=== PATIENT | female | born 1995 | race Two or more races ===

== ENCOUNTER 2024-09-28 21:57 | Emergency (ER) | payer MEDICAID, SELFPAY ==
--- NOTE | ~2024-09-28 | US_ITS ---
CLINICAL HISTORY: 1st trimester 4 weeks vaginal bleeding. Exam: 1st trimester obstetrical ultrasound, transabdominal and transvaginal evaluation. Comparison: None. Findings: Patient's last menstrual period was August 24, 2024. This gives a gestational age of 5 weeks and 1 day. Transabdominal and transvaginal obstetrical ultrasound studies performed. Urinary bladder is moderately distended on the transabdominal images. Uterus measures 10.1 x 4.0 x 5.2 cm in size. Myometrium is unremarkable. Single intrauterine gestation is identified. Gestational sac and yolk sac are identified. Potential very early pole. Mean sac diameter gives an estimated age by ultrasound of the 5 weeks and 3 days +/-1 week. No cardiac activity is identified. No subchorionic hemorrhage. Right ovary measures 3.7 x 1.6 x 2.2 cm in size. Right ovary is unremarkable. Left ovary measures 3.5 x 2.2 x 3.0 cm in size. Presumed corpus luteal cyst within the left ovary measuring 2.1 x 1.7 x 2.0 cm in size. Small volume free pelvic fluid. Impression: 1. Single intrauterine gestation with age by ultrasound of 5 weeks and 3 days +/-1 week. Given the lack of visualization of a definitive pole and the lack of cardiac activity, serial beta hCG and follow-up ultrasound study is suggested to confirm viability. 2. Presumed corpus luteal cyst within the left ovary. This document has been electronically signed by: Chele Mills MD on 09/29/2024 02:01:44
[2024-09-28 22:00] VITALS: BP 116/71; PULSE 100; RESP 17; TEMP 36.9; O2SAT 98; BMI 28.5
[2024-09-28 22:26] LABS: MANUAL DIFF FLAG NO
[2024-09-28 22:28] LABS: Basophils Absolute Auto 0.1 X10*3/uL (0.0-0.2); Basophils Percent Auto 0.3 % (0-2); Eosinophils Absolute Auto 0.1 X10*3/uL (0.0-0.4); Eosinophils Percent Auto 0.5 % (0-4); Hematocrit 37.9 % (37.0-47.0); Hemoglobin 12.6 g/dl (12.0-16.0); Imm Gran Abs Auto 0.08 X10*3/uL (0.00-0.03); Imm Gran Pct Auto 0.5 % (0.0-0.4); Lymphocytes Absolute Auto 2.7 X10*3/uL (1.2-4.9); Lymphocytes Percent Auto 16.7 % (20-40); Mean Corpuscular HGB Conc 33.2 g/dl (31.0-35.0); Mean Corpuscular Hemoglobin 27.8 pg (27.0-33.0); Mean Corpuscular Volume 83.7 fL (80.0-98.0); Mean Platelet Volume 10.4 fL (9.4-12.3); Monocytes Percent Auto 6.3 % (2-11); Neutrophils Absolute Auto 12.4 x10*3/uL (2.0-8.3); Neutrophils Percent Auto 75.7 % (45-73); Platelet Count 356 X10*3/uL (160-400); Red Blood Count 4.53 X10*6/uL (4.20-5.50); Red Cell Distribution Width 13.2 % (11.0-16.0); White Blood Count 16.4 X10*3/uL (4.8-10.8)
[2024-09-28 22:48] LABS: Alanine Aminotransferase 18 U/L (0-31); Albumin Level 4.3 g/dL (3.5-5.0); Alkaline Phosphatase 97 U/L (39-117); Anion Gap 13 (12-20); Aspartate Amino Transferase 38 U/L (5-31); Bilirubin Total 0.5 mg/dL (0.0-1.0); Blood Urea Nitrogen 9 mg/dL (9-16); Calcium 9.4 mg/dL (8.4-10.2); Carbon Dioxide 22 mmol/L (22-29); Chloride 108 mmol/L (96-108); Creatinine Clr Calc Pharmacy 79.8; Estimated Glomerular Filt Rate 58; Glucose Random 90 mg/dL (60-115); HCG Quantitative 5948 mIU/mL; Lipase 18 U/L (8-78); Potassium 3.7 mmol/L (3.3-5.1); Sodium 139 mmol/L (135-145); Total Protein 8.4 g/dL (6.5-8.0)
--- NOTE | 2024-09-28 23:08 | ED_ITS ---
HPI - Female Genitourinary General Chief complaint: Vaginal Bleeding Stated complaint: Miscarriage? Time Seen by Provider: 09/28/24 22:57 Source: patient Mode of arrival: ambulatory Limitations: no limitations History of Present Illness ED Provider: DR. Lezama HPI Narrative: 29-year-old female LMP was 08/24/2024 was late for her menstruation and ran at test that was positive, patient was playing basketball game today feels total body ache, has noticed vaginal bleeding since early today, been complaining lower abdominal/ pelvic contraction on and off today, no lightheadedness, no syncopal episode. No history of STDs or ectopic in the past. No dysuria, no frequency urination, no hematuria , no fever. No coughing. Related Data Allergies Allergy/AdvReac Type Severity Reaction Status Date / Time No Known Allergies Allergy Verified 09/28/24 22:05 Review of Systems 2 Review of Systems: All other systems are reviewed and are negative Constitutional: Reports as per HPI and Reports no additional constitutional complaints Eyes: Reports as per HPI and Reports no additional eye complaints Reports system reviewed and no additional complaints, except as documented Cardiovascular: Reports as per HPI and Reports no additional cardiovascular complaints Respiratory: Reports as per HPI and Reports no additional respiratory complaints Gastrointestinal: Reports as per HPI and Reports no additional gastrointestinal complaints Genitourinary: Reports no additional female genitourinary complaints Musculoskeletal: Reports no additional musculoskeletal complaints Skin/Breast: Reports system reviewed and no additional complaints, except as docu Psychiatric: Reports no additional psychiatric complaints Endocrine: Reports no additional endocrine complaints Hematologic/Lymphatic: Reports no additional hematologic/lymphatic complaints Allergic/Immunologic: Reports no additional allergic/immunologic complaints Reports system reviewed and no additional complaints, except as documented and Reports Abnormal speech present [facility] Social History Social History Advance Directives: No Advance Directives Information Provided: No Do you have a plan to hurt others: No Plan Physical Exam 2 Vital Signs: Vital Signs: Last Vital Signs Temp 98.4 F 09/29/24 02:00 Pulse 87 09/29/24 02:00 Resp 18 09/29/24 02:00 BP 107/62 09/29/24 02:00 Pulse Ox 100 09/29/24 02:00 O2 Del Method Room Air 09/29/24 02:00 BMI result Body Mass Index 28.5 Vital signs have been reviewed and appear to be correct. Blood pressure elevated. Heart rate normal. Respiratory rate normal. Temperature normal. Oxygen saturation normal. Appearance: Alert. Oriented X3. No acute distress. Head: Normal external exam. Normocephalic. Atraumatic. No Martinez signs noted. No raccoon eyes noted Eyes: PERRLA. EOMI. Conjunctiva and sclera normal. Eyelids normal. ENT: TM's Normal. Pharynx normal. Uvula midline. Moist mucous membranes. No trismus noted. No drooling noted. No muffled voice noted. Neck: Normal inspection. Neck supple. FROM. No adenopathy. Thyroid Normal. No meningeal signs. No neck mass noted. CVS: Normal heart rate and rhythm. Heart sound normal. No murmurs noted. Pulses normal throughout. Respiratory: No respiratory distress. Painless inspiration. Breath sounds normal. No wheezes/rales/rhonchi noted. Chest nontender. No accessory muscle usage noted or decreased air movement noted. Abdomen: Soft and nontender. Bowel sounds normal in all 4 quadrants. No distention noted. No organomegaly noted. No visible injury noted. Pelvic exam: Deferred for pelvic ultrasound. Back: No CVA tenderness. Full range of motion noted. Skin: Skin warm and dry. Normal skin color. Normal skin turgor. No rashes/lesions/lacerations noted. Extremities: No lower extremity edema. Extremities exhibit normal range of motion. Extremities nontender. Neuro: Oriented X 3. Cranial nerve exam: II-XII are grossly intact No motor deficit. No sensory deficit. Reflexes normal. Course Reevaluation(s) Reevaluation #1: 29-year-old female 5 weeks +2 days came in with vaginal bleeding and slight discomfort in the lower abdomen, ultrasound revealed intrauterine empty sac which is appropriate for her stage of . ABO Rh type is O positive. Leukocytosis could be reactionary to itself but no source of infection. Time: 02:43 Medications Administered Discontinued Medications Generic Name Dose Route Start Last Admin Trade Name Freq PRN Reason Stop Dose Admin Acetaminophen 650 mg 09/28/24 23:21 09/28/24 23:32 Acetaminophen 325 Mg Tablet PO 09/28/24 23:22 650 mg ONCE ONE Administration Medical Decision Making Differential Diagnosis Differential Diagnoses: The differential diagnosis associated with the presentation includes ( Ectopic , threatened , early normal , severe anemia, electrolyte derangement, UTI, pyelonephritis, ABO Rh incompatibility.) Admission/Observation Consideration of admission/observation: Escalation of care including admission/observation considered Lab Data MDM Lab Attestation statement: I reviewed the patient's lab results. 09/28/24 22:19 09/28/24 22:19 Labs: Lab Results 09/28/24 09/28/24 09/29/24 Range/Units 22:19 23:16 02:02 WBC 16.4 H (4.8-10.8) X10*3/uL RBC 4.53 (4.20-5.50) X10*6/uL Hgb 12.6 (12.0-16.0) g/dl Hct 37.9 (37.0-47.0) % MCV 83.7 (80.0-98.0) fL MCH 27.8 (27.0-33.0) pg MCHC 33.2 (31.0-35.0) g/dl RDW 13.2 (11.0-16.0) % Plt Count 356 (160-400) X10*3/uL MPV 10.4 (9.4-12.3) fL Immature Gran % (Auto) 0.5 H (0.0-0.4) % Neut % (Auto) 75.7 H (45-73) % Lymph % (Auto) 16.7 L (20-40) % [place] % (Auto) 6.3 (2-11) % Eos % (Auto) 0.5 (0-4) % Baso % (Auto) 0.3 (0-2) % Lymph # (Auto) 2.7 (1.2-4.9) X10*3/uL [place] # (Auto) 1.0 (0.1-1.2) X10*3/uL Eos # (Auto) 0.1 (0.0-0.4) X10*3/uL Baso # (Auto) 0.1 (0.0-0.2) X10*3/uL Abs Immat Gran (auto) 0.08 H (0.00-0.03) X10*3/uL Absolute Neuts (auto) 12.4 H (2.0-8.3) x10*3/uL Absolute Nucleated RBC 0.000 (0.0-0.012) X10*3/uL Nucleated RBC % (auto) 0.0 (0.0-0.2) /100WBC Sodium 139 (135-145) mmol/L Potassium 3.7 (3.3-5.1) mmol/L Chloride 108 (96-108) mmol/L Carbon Dioxide 22 (22-29) mmol/L Anion Gap 13 (12-20) BUN 9 (9-16) mg/dL Creatinine 1.11 (0.5-1.4) mg/dL Estim Creat Clear Calc 79.8 Estimated GFR 58 Random Glucose 90 (60-115) mg/dL Calcium 9.4 (8.4-10.2) mg/dL Total Bilirubin 0.5 (0.0-1.0) mg/dL AST 38 H (5-31) U/L ALT 18 (0-31) U/L Alkaline Phosphatase 97 (39-117) U/L Total Protein 8.4 H (6.5-8.0) g/dL Albumin 4.3 (3.5-5.0) g/dL Lipase 18 (8-78) U/L Beta HCG, Quant 5948 mIU/mL Urine Color Yellow Urine Appearance Clear Urine pH 6.5 (5.0-9.0) Ur Specific [place] 1.020 (1.005-1.025) Urine Protein Negative (Neg-Trace) mg/dL Urine Glucose (UA) Negative (Negative) mg/dL Urine Ketones Trace (Negative) mg/dL Urine Blood Negative (Negative) Urine Nitrite Negative (Negative) Ur Leukocyte Esterase Negative (Negative) Urine RBC 0-2 (0-2) /HPF Urine WBC 0-5 (0-5) /HPF Ur Squamous Epith Cells 0-2 (0-2) /HPF Urine Bacteria None Seen (None Seen) Hyaline Casts 0-2 (0-2) /LPF Blood Type O Positive Independent Interpretation I performed an independent interpretation of an: Ultrasound ( Pelvic ultrasound:1. Single intrauterine gestation with age by ultrasound of 5 weeks and 3 days +/-1 week. Given the lack of visualization of a definitive pole and the lack of cardiac activity, serial beta hCG and follow-up ultrasound study is suggested to confirm viability. 2) Radiology Impression Discussion of test interpretation with radiology: I have reviewed the radiologist's reading. Discharge Plan Discharge Clinical Impression: Threatened Patient Disposition: Home, Self-Care Instructions: Threatened Miscarriage (ED) Additional Instructions: bedrest, no heavy lifting, no strenuous exercising, no intercourse, seek medical attention if worsening of vaginal bleeding or abdominal pain. Otherwise it is important to follow-up with Dr. Saenz be in 48 hours please call his office as instructed. Referrals: Krishna Saenz MD [Physician] - Print Language: Slovenian
[2024-09-28 23:19] VITALS: BP 107/66; PULSE 88; RESP 18; TEMP 36.9; O2SAT 100
--- NOTE | 2024-09-28 23:30 | MHC.EDTECH ---
This tech took over care of pt at 2300,rounded and vitals completed, RH factor drawn and band applied to right wrist, patient asked T/W for something for pain, RN Usha was made aware,call kinney in reach
[2024-09-28] MEDS: Acetaminophen 325 MG TABLET 650 MG PO (23:32)
[2024-09-29 02:00] VITALS: BP 107/62; PULSE 87; RESP 18; TEMP 36.9; O2SAT 100
--- NOTE | 2024-09-29 02:03 | MHC.EDTECH ---
Addendum entered by Susu Hernandes 09/29/24 02:05: urine sample obtained and sent to lab, brother at bedside,call kinney in reach Original Note: Patient is eating [employer] appears comfortable,rounds and vitals completed,
[2024-09-29 02:11] LABS: Appearance Urine Clear; Color Urine Yellow; Glucose Urine UA Negative (Negative); Leukocyte Esterase Urine Negative (Negative); Nitrite Urine Negative (Negative); PH 6.5 (5.0-9.0); Urine Blood Negative (Negative); Urine Ketones Trace mg/dL (Negative); Urine Protein Negative (Neg-Trace)
[2024-09-29 02:13] LABS: Bacteria Urine None Seen (None Seen); Hyaline Casts Urine 0-2 /LPF (0-2); RBC Urine 0-2 /HPF (0-2); Squamous Epithelial Cell Urine 0-2 /HPF (0-2); WBC Urine 0-5 /HPF (0-5)
[2024-09-29 02:58] VITALS: BP 107/62; PULSE 87; RESP 18; TEMP 36.9; O2SAT 100
== END 2024-09-29 03:01 | disposition home or self-care (01) ==
PROVIDERS: Emergency Provider Emergency Medicine
DX: O20.0 Threatened abortion (principal)
CPT/HCPCS: 36415; 76801; 76817; 80053; 81001; 83690; 84702; 85025; 86900; 86901; 99283; 99284

== ENCOUNTER → 2024-09-29 | Outpatient (BNV) | payer MEDICAID, SELFPAY | PROVIDERS: Emergency Provider Emergency Medicine; Visit Provider Radiology Diagnostic Radiology | DX: O26.851 Spotting complicating pregnancy, first trimester (principal) | CPT/HCPCS: 76801; 76817 ==

== ENCOUNTER 2024-10-01 21:49 | Emergency (ER) | payer OTHER, SELFPAY ==
[2024-10-01 21:57] VITALS: BP 121/63; PULSE 98; RESP 18; TEMP 36.3; O2SAT 100; BMI 28.2
[2024-10-01 22:34] LABS: IDNOW Serial# 08D9AD1C; Strep A Nucleic Acid Positive (Negative)
[2024-10-01 23:00] LABS: Influenza A PCR NEGATIVE (Negative); Influenza B PCR NEGATIVE (Negative); Resp Syncy Virus RNA Qual PCR NEGATIVE (Negative); SARS COV2 PCR INHOUSE NEGATIVE (Negative)
--- NOTE | 2024-10-01 23:07 | ED_ITS ---
HPI - URI/Sore Throat General Chief Complaint: Upper Respiratory Symptoms Stated Complaint: sore throat Time Seen by Provider: 10/01/24 23:02 Source: patient Mode of arrival: ambulatory Limitations: no limitations History of Present Illness ED Provider: HPI Narrative: Patient complaining of sore throat since yesterday with painful to swallow and has a muffled voice low-grade fever no chills no shortness a breath no rhinohea Related Data Previous Rx's ?Medication ?Instructions ?Recorded cefuroxime axetil 500 mg tablet 500 mg PO BID 10 days #20 tabs 10/01/24 ibuprofen 600 mg tablet 600 mg PO Q6H PRN fever or pain 10/01/24 #30 tabs Allergies Allergy/AdvReac Type Severity Reaction Status Date / Time No Known Allergies Allergy Verified 10/01/24 21:58 Review of Systems Review of Systems: Yes all other systems are reviewed and are negative PMFSH Social History Social History Smoked in Last 30 Days: No Use of substances other than those prescribed or required for medical reasons: No Advance Directives: No Advance Directives Information Provided: No Do you have a plan to hurt others: No Plan Patient : No Physical Exam Vital Signs: Vital Signs: Last Vital Signs Temp 97.6 F 10/02/24 00:07 Pulse 84 10/02/24 00:07 Resp 18 10/02/24 00:07 BP 112/61 10/02/24 00:07 Pulse Ox 100 10/02/24 00:07 O2 Del Method Room Air 10/02/24 00:07 BMI result Body Mass Index 28.2 Appearance: Alert. Oriented X3. No acute distress. Eyes: no pallor or icterus ENT: Pharynx erythematous with exudates Oral Mucosa moist Neck: Normal inspection. Neck supple. CVS: Normal heart rate and rhythm. Pulses normal. Respiratory: No respiratory distress. Equal air entry bilateral, no wheezing/rales/rhonchi Abd: soft, not tender Skin: Skin warm and dry. Normal skin color. Normal skin turgor. Extremities: No lower extremity edema, no calf tenderness Neuro: Oriented X 3. Medications Administered Discontinued Medications Generic Name Dose Route Start Last Admin Trade Name Freq PRN Reason Stop Dose Admin Cefuroxime Axetil 500 mg 10/01/24 23:07 10/01/24 23:16 Cefuroxime Axetil 500 Mg Tablet PO 10/01/24 23:08 500 mg ONCE ONE Administration Medical Decision Making Medical Decision Making MDM Narrative: Patient with strep throat will prescribe cefuroxime Lab Data MDM Lab Attestation statement: I reviewed the patient's lab results. Labs: Lab Results 10/01/24 Range/Units 22:16 Influenza Type A (PCR) NEGATIVE (Negative) Influenza Type B (PCR) NEGATIVE (Negative) RSV RNA Qual (PCR) NEGATIVE (Negative) SARS-CoV-2 RNA (RT-PCR) NEGATIVE (Negative) S. pyogenes GrpA YOLETTE Positive A (Negative) Discharge Plan Discharge Clinical Impression: Strep throat Patient Disposition: Home, Self-Care Instructions: Strep Throat (ED) Additional Instructions: Drink plenty of fluids Take antibiotics as prescribed Tylenol/Motrin for pain Follow with your PCP if not better Prescriptions: New ibuprofen 600 mg tablet 600 mg PO Q6H PRN (Reason: fever or pain) Qty: 30 0RF cefuroxime axetil 500 mg tablet 500 mg PO BID 10 Days Qty: 20 0RF Stand Alone Forms: Work/School Release Interventions: ED Discharge Assessment Last Done: 10/02/24 00:07 Discharge Date/Time: 10/02/24 00:07 Print Language: Cook Islander
[2024-10-01] MEDS: cefuroxime axetiL 500 MG TABLET PO (23:16)
[2024-10-02] VITALS: BP 112/61; PULSE 84; RESP 18; TEMP 36.4; O2SAT 100
[2024-10-02 00:07] VITALS: BP 112/61; PULSE 84; RESP 18; TEMP 36.4; O2SAT 100
== END 2024-10-02 00:07 | disposition home or self-care (01) ==
PROVIDERS: Emergency Provider Internal Medicine
DX: J02.0 Streptococcal pharyngitis (principal); R13.10 Dysphagia, unspecified; R50.9 Fever, unspecified; Z03.818 Encounter for observation for suspected exposure to other biological agents ruled out
CPT/HCPCS: 0241U; 87651; 99283; 99284

== ENCOUNTER 2024-11-21 19:22 | Emergency (ER) | payer OTHER, SELFPAY ==
--- NOTE | ~2024-11-21 | XR_ITS ---
CLINICAL HISTORY: SOB, asthma 2 view chest x-ray Comparison: None Findings: Mildly diffuse interstitial opacities with bronchial wall thickening. No significant pleural effusion or pneumothorax. Normal size heart. No acute fracture. IMPRESSION: Possible small airways disease. This document has been electronically signed by: Noel Short MD on 11/21/2024 20:22:55
[2024-11-21 19:31] VITALS: BP 134/76; PULSE 85; RESP 18; TEMP 36.6; O2SAT 98; BMI 27.9
--- NOTE | 2024-11-21 19:31 | ED_ITS ---
HPI - Asthma General Chief Complaint: Upper Respiratory Symptoms Stated Complaint: asthma Time Seen by Provider: 11/21/24 21:46 Source: patient Limitations: no limitations History of Present Illness ED Provider: Tatum Juarez PA-C HPI Narrative: 29-year-old female with a history of asthma presents with asthma exacerbation x3 days. Associated dry repetitive cough, nasal congestion sneezing, wheezing and shortness of breath. Patient states her home medications have not helped alleviate her symptoms. Denies fever. Denies seasonal allergies. Related Data Previous Rx's ?Medication ?Instructions ?Recorded cefuroxime axetil 500 mg tablet 500 mg PO BID 10 days #20 tabs 10/01/24 ibuprofen 600 mg tablet 600 mg PO Q6H PRN fever or pain 10/01/24 #30 tabs albuterol sulfate 2.5 mg/3 mL 2.5 mg (3 mL) inhalation Q4-6H PRN 11/21/24 (0.083 %) solution for nebulization shortness of breath or wheezing #75 mL prednisone 20 mg tablet 40 mg (2 x 20 mg) PO DAILY #8 tabs 11/21/24 Allergies Allergy/AdvReac Type Severity Reaction Status Date / Time No Known Allergies Allergy Verified 11/21/24 19:34 Review of Systems Review of Systems: Yes all other systems are reviewed and are negative Constitutional: Constitutional: Denies fatigue and Denies fever(s) ENT: Reports nasal congestion Cardiovascular: Cardiovascular: Denies chest pain and Reports dyspnea Respiratory: Respiratory: Denies chest congestion, Reports cough, Reports dyspnea and Reports wheezing Endocrine: Endocrine: Denies fatigue Allergic/Immunologic: Allergic/Immunologic: Reports wheezing PMFSH Past Medical History Attestation statement: The following information was validated with the patient. Social History Social History Smoked in Last 30 Days: No Use of substances other than those prescribed or required for medical reasons: No Advance Directives: No Advance Directives Information Provided: No Do you have a plan to hurt others: No Plan Patient : No Physical Exam Vital Signs: Vital Signs: Last Vital Signs Temp 97.8 F 11/21/24 19:31 Pulse 81 11/21/24 22:08 Resp 18 11/21/24 22:08 BP 134/76 11/21/24 19:31 Pulse Ox 95 11/21/24 21:58 O2 Del Method Room Air 11/21/24 21:58 BMI result Body Mass Index 27.9 Const: Other: Alert well-appearing Orientation/consciousness: patient oriented x3 Resp: Other: Nonlabored respirations speaking in clear sentences, no wheezing, occasional dry cough no bronchospasm, sounds diminished Cardio: Other: Normal peripheral perfusion Skin: Other: Warm dry no rash Neuro: General: patient oriented x3, gait normal, no focal motor deficits and CN's II-XI intact bilaterally Psych: Other: Cooperative Course Course Course Narrative: This is an RME performed by Nii Carlisle, RN DIABETES EDUCATOR: Additional HPI, ROS, PE not included below will be deferred to primary provider. 29 yo female with PMHx of asthma, presents to ED due to SOB and difficulty breathing that started 3 days ago. She states she has cough, intermittent chest pain worse with deep inspiration and cough. She reports she does not havea nebulizer, but is using albuterol inhaler without effect. PE: B/L diminished breath sounds on auscultation, no wheezing Plan: CXR, EKG, viral swabs Medications Administered Discontinued Medications Generic Name Dose Route Start Last Admin Trade Name Freq PRN Reason Stop Dose Admin Albuterol Sulfate 7.5 mg/ 10 mg 11/21/24 21:59 11/21/24 22:07 Albuterol Sulfate 2.5 mg INHALE 11/21/24 22:00 10 mg ONCE ONE Administration Prednisone 40 mg 11/21/24 21:48 11/21/24 21:56 Prednisone 20 Mg Tablet PO 11/21/24 21:49 40 mg ONCE ONE Administration Medical Decision Making Medical Decision Making [facility] Narrative: 29-year-old female with a history of asthma presents with asthma exacerbation x3 days. Associated dry repetitive cough, nasal congestion sneezing, wheezing and shortness of breath. Patient states her home medications have not helped allev iate her symptoms. Denies fever. Denies seasonal allergies. Problem: Asthma History: Per patient I have considered the following differential diagnoses: Asthma exacerbation, bronchitis, pneumonia, viral syndrome, seasonal allergies Plan: chest x-ray and viral panel were obtained from triage, we will order an updraft and steroid. I have independently reviewed the following tests: Labs: Viral panel negative Chest x-ray:Findings: Mildly diffuse interstitial opacities with bronchial wall thickening. No significant pleural effusion or pneumothorax. Normal size heart. No acute fracture. IMPRESSION: Possible small airways disease. Lab Data Labs: Lab Results 11/21/24 Range/Units 19:56 Influenza Type A (PCR) NEGATIVE (Negative) Influenza Type B (PCR) NEGATIVE (Negative) RSV RNA Qual (PCR) NEGATIVE (Negative) SARS-CoV-2 RNA (RT-PCR) NEGATIVE (Negative) Discharge Plan Discharge Clinical Impression: Asthma exacerbation Patient Disposition: Home, Self-Care Instructions: Asthma (ED) Additional Instructions: The viral panel was negative, you were screened for influenza RSV and COVID. The chest x-ray is clear you do not have pneumonia. See home care instructions. Use your home nebulizer as directed, take the steroid as directed. Follow up with your primary care provider as needed. Prescriptions: New albuterol sulfate 2.5 mg /3 mL (0.083 %) solution for nebulization 2.5 mg inhalation Q4-6H PRN (Reason: shortness of breath or wheezing) Qty: 75 0RF prednisone 20 mg tablet 40 mg PO DAILY Qty: 8 0RF No Action ibuprofen 600 mg tablet 600 mg PO Q6H PRN (Reason: fever or pain) Qty: 30 0RF cefuroxime axetil 500 mg tablet 500 mg PO BID 10 Days Qty: 20 0RF Stand Alone Forms: Work/School Release Print Language: Urdu
--- NOTE | 2024-11-21 19:35 | ECG_ITS ---
Test Reason : sob Blood Pressure : */* mmHG Vent. Rate : 82 BPM Atrial Rate : 82 BPM P-R Int : 170 ms QRS Dur : 82 ms QT Int : 350 ms P-R-T Axes : 74 63 50 degrees QTcB Int : 408 ms Normal sinus rhythm with sinus arrhythmia Nonspecific T wave abnormality Abnormal ECG No previous ECGs available Referred By: Edwige Carlisle Electronically Signed By: ANDERS MARIE
[2024-11-21 20:40] LABS: Influenza A PCR NEGATIVE (Negative); Influenza B PCR NEGATIVE (Negative); Resp Syncy Virus RNA Qual PCR NEGATIVE (Negative); SARS COV2 PCR INHOUSE NEGATIVE (Negative)
--- OUTSIDE RECORDS SUMMARY | 2024-11-21 21:06 | XMS_ITS | Patient Health Record ---
Author Organization Julio Plasc[facility] Address [address] [place] [address] Care Team Providers Care Music Supervisor Name Role Phone Dominik VILLARREAL, Orquidea Primary Care Provider [phone] Herman VILLARREAL, Tigist Unavailable [phone] Allergies No Known Allergies Reason For Referral No Information Medications Medication SIG (Take, Route, Frequency, Duration) Notes Start Date End Date Status Gummies 0.18-25 MG as directed Orally once daily for 90 days Active Reglan 10 MG 1 tablet Orally ever y 8 hours as needed for 30 days Active Proventil HFA 108 (90 Base) MCG/ACT 1 puff as needed Inhalation every 4 hrs for 30 days Active Unisom SleepTabs 25 MG 1/2 tablet at bed time as needed Oral Once a day for 30 days Not-Taking Pyridoxine HCl 25 MG 1 tablet Oral every 8 hrs for 30 days Active Ferrous Sulfate 325 (65 Fe) MG 1 tablet Oral Once a day for 30 days Active Unisom SleepTabs 25 MG 1/2 tablet at bed time as needed Oral Once a day for 60 days Not-Taking Active Unisom SleepTabs 25 MG 1/2 tablet at bed time as needed Oral Once a day for 30 days Not-Taking Pyridoxine HCl 25 MG 1 tablet Oral every 8 hrs for 30 days Active 28-0.8 MG 1 tablet Orally Once a day for 30 day(s) Active Colace 100 MG 1 capsule as needed Orally Once a day for 30 days Active Pyridoxine HCl 25 MG 1 tablet Oral every 8 hrs for 60 days Active Albuterol Sulfate HFA 108 (90 Base) MCG/ACT 2 puff as needed Inhalation every 4 hrs Active Social History Tobacco Use: Social History Observation Description Date Details (start date - stop date) Never Smoker NA - NA Sex Assigned At : Social History Observation Description Sex Assigned At Female Tobacco Use/Smoking Question Answer Notes Tobacco use: nonsmoker Alcohol Screen (Audit-C) Question Answer Notes Did you have a drink containing alcohol in the p ast year? No Points 0 Interpretation Negative Problems Problem Type SNOMED Code ICD Code Onset Dates Problem Status W/U Status Risk Notes Problem 80632592 Other constipation (K59.09) Active confirmed Problem Nausea and vomiting (34079820) Nausea with vomiting, unspecified (R11.2) Active confirmed Problem 22629614 Encounter for supervision of other normal , first trimester (Z34.81) Active confirmed Problem Caries (05111988) Caries (K02.9) Active confirmed Problem Dental examination (02964694) Dental examination (Z01.20) Active confirmed Problem 686968590 Mild intermittent asthma without complication (J45.20) Active confirmed Problem 99681017 Supervision of high risk in second trimester (O09.92) Active confirmed Problem Chest pain (23753720) Chest pain in adult (R07.9) Active confirmed Problem 32414020 Supervision of high risk in first trimester (O09.91) Active confirmed Plan Of Treatment Pending Test Test Name Order Date PAP + HPV HI 9102-5 10/17/2021 Future Test Test Name Order Date 55687-VE OB NUCHAL TRANSLUCENCY 10/18/19 22 Panorama Testing 10/17/2021 Horizon 10/17/2021 OB ANATOMY 44773 11/16/2021 OB ANATOMY 51487 12/14/2021 Insurance Providers Payer Name Payer Address Payer Phone Subscriber Number Group Number Insured Name Patient Relationship to Insured Coverage Start Date Coverage End Date [facility] [address] [place] [address] [id number] Mariana Garcia Self - patient is the insured Medicaid [address] [place] [address] [id number] Mariana Garcia Self - patient is the insured [employer] [facility] [address] [place] [address] [id number] Mariana Garcia Self - patient is the insured 2 Medical (General) History Medical History History ICD Code PT is 14 weeks , due date 05/07
[2024-11-21] MEDS: predniSONE 20 MG TABLET 40 MG PO (21:56)
[2024-11-21 21:58] VITALS: PULSE 75; O2SAT 95
[2024-11-21] MEDS: Albuterol Sulfate 7.5 MG, Albuterol Sulfate (0.083%) 2.5 MG 10 MG INHALE (22:07)
[2024-11-21 22:08] VITALS: PULSE 81; RESP 18; O2SAT 98
[2024-11-21 23:01] VITALS: BP 132/65; PULSE 95; RESP 18; TEMP 37.2; O2SAT 97
== END 2024-11-21 23:06 | disposition home or self-care (01) ==
PROVIDERS: Nurse Practitioner Family; Emergency Provider Emergency Medicine
DX: J45.909 Unspecified asthma, uncomplicated (principal); Z03.818 Encounter for observation for suspected exposure to other biological agents ruled out; R06.02 Shortness of breath
CPT/HCPCS: 0241U; 71046; 93005; 94640; 99284; 99285

== ENCOUNTER → 2024-11-21 19:34 | Outpatient (BNV) | payer OTHER, SELFPAY | PROVIDERS: Visit Provider Radiology Diagnostic Radiology | DX: J45.909 Unspecified asthma, uncomplicated (principal) | CPT/HCPCS: 71046 ==

== ENCOUNTER → 2024-11-21 19:35 | Outpatient (BNV) | payer OTHER, SELFPAY | PROVIDERS: Emergency Provider Emergency Medicine; Visit Provider Internal Medicine | DX: R06.02 Shortness of breath (principal); R94.31 Abnormal electrocardiogram [ECG] [EKG] | CPT/HCPCS: 93010 ==